=== PATIENT | female | born 1995 | race Caucasian/White ===

== ENCOUNTER 2019-05-07 04:39 | Emergency (ER) | payer OTHER ==
[~2019-05-07] VITALS: Ht 154.9 cm; Wt 72.7 kg
[2019-05-07 04:45] VITALS: TEMP 98.6
[2019-05-07] MEDS ORDERED: LEXAPRO 10MG10 MG PO (04:50)
[2019-05-07] MEDS ORDERED: DOXYCYCLINE HY100 MG PO (07:12)
[2019-05-07 07:50] VITALS: BP 119/63; PULSE 79
== END 2019-05-07 07:50 | disposition home or self-care (01) ==
LOC: COL.ER 04:39
DX: L03.011 Cellulitis of right finger (principal); F41.9 Anxiety disorder, unspecified